=== PATIENT | male | born 1980 | race African-American/Black ===

== ENCOUNTER 2017-03-11 10:12 | Emergency (ER) | payer OTHER ==
[~2017-03-11] VITALS: Ht 175.3 cm; Wt 78.0 kg
[2017-03-11 10:18] VITALS: BP 130/68; PULSE 63; RESP 16; TEMP 98.7; O2SAT 99
[2017-03-11] MEDS ORDERED: ONDANSETRON ODT 4 MG TAB PO ONE (10:30)
--- NOTE | 2017-03-11 10:45 | PD ---
HPI Chief Complaint: Cold / Flu Symptoms Time Seen by Provider: 10:17 Travel History International Travel<30 days: No Contact w/Intl Traveler<30days: No Traveled to known affect area: No History of Present Illness HPI Patient is a 37 year old male who comes in complaining of aches, nausea, vomiting, fevers. He says he believes he has a flu. He says this is been the past 3 days. He tried to go to work today, where they discovered he was febrile and sent him home. He says he needs a prescription for Tamiflu, so he can go back to work. He denies any abdominal pain. He has not had cough or shortness of breath. He did get a flu shot this year. He has been taking TheraFlu with some relief of his symptoms. [facility] Past Medical History Medical History: Denies Significant Hx Influenza Vaccination: Yes Past Surgical History Surgical History: No Previous Surgery Social History Alcohol Use: Yes ([facility]) Tobacco Use: No Substance Use: No Allergies-Medications (Allergen,Severity, Reaction): Coded Allergies: No Known Allergies (Unverified , 03/11/17) Reported Meds & Prescriptions Reported Meds & Active Scripts Active No Active Prescriptions or Reported Medications Review of Systems General / Constitutional: Positive: Fever, Chills HENT: No: Headaches, Lightheadedness Cardiovascular: No: Chest Pain or Discomfort Respiratory: No: Shortness of Breath Gastrointestinal: Positive: Nausea, Vomiting, No: Abdominal Pain Musculoskeletal: Positive: Myalgias Skin: No Rash, No Change in Pigmentation Neurologic: No: Weakness, Dizziness Physical Exam Narrative GENERAL: Awake and alert, in no acute distress. SKIN: Focused skin assessment warm/dry. HEAD: Atraumatic. Normocephalic. EYES: Pupils equal and round. No scleral icterus. ENT: No nasal bleeding or discharge. Mucous membranes pink and moist. CARDIOVASCULAR: Regular rate and rhythm. No murmur appreciated. RESPIRATORY: No accessory muscle use. Clear to auscultation. Breath sounds equal bilaterally. GASTROINTESTINAL: Abdomen soft, non-tender, nondistended. MUSCULOSKELETAL: No obvious deformities. No clubbing. No cyanosis. No edema. NEUROLOGICAL: Awake and alert. No obvious cranial nerve deficits. Motor grossly within normal limits. Normal speech. Data Data Last Documented VS Vital Signs Date Time Temp Pulse Resp B/P (MAP) Pulse Ox O2 Delivery O2 Flow Rate FiO2 1/30/18 10:18 98.7 63 16 130/68 (88) 99 Orders Orders Influenzae A/B Antigen (03/11/17 10:17) Ondansetron Odt (Zofran Odt) (03/11/17 10:30) MDM Medical Decision Making Medical Screen Exam Complete: Yes Emergency Medical Condition: Yes Differential Diagnosis influenza vs uri vs viral illness Narrative Course Patient is a 37 year old male who comes in complaining of fever, bodyaches, nausea and vomiting. Exam shows no acute abnormalities. He is afebrile currently after taking Theraflu. Flu swab sent. Given Zofran for nausea. Will discharge with prescriptions for Tamiflu and Zofran. Advised to rest, drink plenty of fluids, take Tylenol or Ibuprofen as needed for pain or fever. Advised to return to the ED as needed for any worsening symptoms. Diagnosis Primary Impression: Viral illness Patient Instructions: General Instructions, Viral Syndrome (ED) Additional Instructions: Drink plenty of fluids. Take Tylenol or Ibuprofen as needed for pain or fever. Take Zofran as needed for nausea. Follow up with a primary care physician. Return to the ED as needed for any worsening symptoms. Scripts Ondansetron Odt (Zofran Odt) 4 Mg Tab 4 MG SL Q6HR Y for Nausea/Vomiting, #15 TAB 0 Refills Prov: Pamella Ellison MD 03/11/17 Oseltamivir (Tamiflu) 75 Mg Cap 75 MG PO BID for Mgmt Viral Infection for 5 Days, #10 CAP 0 Refills Prov: Pamella Ellison MD 03/11/17 Disposition: 01 DISCHARGE HOME Condition: Stable Pamella Ellison MD Mar 11, 2017 10:45
[2017-03-11] MEDS ORDERED: ZOFR4TAB3 SL (10:56)
[2017-03-11] MEDS ORDERED: OSEL75 PO (10:56)
== END 2017-03-11 11:20 | disposition home or self-care (01) ==
LOC: NEPE 10:12
DX: B34.9 Viral infection, unspecified (principal)
CPT/HCPCS: 87804; 99284